=== PATIENT | male | born 1985 | race Two or more races ===

== ENCOUNTER 2020-02-17 07:27 | Inpatient (IN) | payer OTHER ==
[~2020-02-17] VITALS: Ht 172.7 cm; Wt 108.9 kg
[2020-02-19] MEDS ORDERED: PERCOCET 5-3251 EACH PO (09:47)
== END 2020-02-19 11:02 | disposition home or self-care (01) | DRG 343 ==
LOC: ER 07:27 → SURH 14:09 → O/R 14:09 → SURH 17:49
PROVIDERS: ADMIT Colon & Rectal Surgery
PROC: 0DTJ4ZZ Resection of Appendix, Percutaneous Endoscopic Approach (ICD-10-PCS; principal; 2020-02-17 15:00)
DX: K35.30 Acute appendicitis with localized peritonitis, without perforation or gangrene (principal); K57.30 Diverticulosis of large intestine without perforation or abscess without bleeding

== ENCOUNTER 2021-01-13 01:33 | Inpatient (IN) | payer OTHER ==
[~2021-01-13] VITALS: Ht 172.7 cm
[~2021-01-13 01:33] MED LIST: PERCOCET 5-3251 EACH PO
[2021-01-16] MEDS ORDERED: FLAGYL500MG PO (13:45)
[2021-01-16] MEDS ORDERED: AMOX-CLAV 875-1 EAC1 PO (13:45)
[2021-01-16] MEDS ORDERED: INTESTINEX680 M1 PO (13:45)
== END 2021-01-16 13:58 | disposition home or self-care (01) | DRG 379 ==
LOC: ER 01:33 → SEC-K 11:51 → MEDI 11:51 → SEC-K 17:11 → MEDI 17:13
PROVIDERS: ADMIT Internal Medicine; ATTEND Internal Medicine
PROC: BW21ZZZ Computerized Tomography (CT Scan) of Abdomen and Pelvis (ICD-10-PCS; principal; 2021-01-13)
DX: K57.33 Diverticulitis of large intestine without perforation or abscess with bleeding (principal); Z20.822 Contact with and (suspected) exposure to COVID-19

== ENCOUNTER 2023-01-13 22:18 | Inpatient (IN) | payer OTHER ==
[~2023-01-13] VITALS: Ht 172.7 cm; Wt 71.7 kg
[~2023-01-13 22:18] MED LIST changes: +AMOX-CLAV 875-1 EAC1 PO; +FLAGYL500MG PO; +INTESTINEX680 M1 PO
--- NOTE | 2023-01-13 22:41 | NUR ---
SE RECIBE PACIENTE EN AMBULANCIA EL MISMO SE ENCUENTRA ALERTA Y ORIENTADO X3, PACIENTE VERBALIZA QUE ESTABA JUGANDO Y SE METIO EN LA MENDEZ IZQUIERDA (SE OBSERVA EDEMA Y AREA ENROJECIDA). PACIENTE VEBRALIZA LE INDICAN COMPANEROS QUE ESTABAN EN EL LUGAR QUE PERDIO EL CONOCIMIENTO (EL NO RECUERDA LO SUCEDIDO), QUE COMENZO A VOMITAR Y TUVO CONVULCIONES. SE MONITOREAN S/V. SE UBICA PACIENTE PENDIENTE EKG (MAQUINA EN USO).
--- NOTE | 2023-01-13 23:01 | NUR ---
SE REALIZA EKG, SE LE PRESENTA A DR NGUYEN.
--- NOTE | 2023-01-14 01:30 | NUR ---
SE EDUCA PACIENTE EN EL [place] MEDICO Y LYNNE REFIERE ENTENDER. SE ADMINITRA MEDS AMY ORDEN MEDICA. SE AMERICO MUESTRAS DE ANTNO Y SE ENVIAN. PACIENTE PENDIENTE A CT SCAN
[2023-01-15] MEDS ORDERED: ZOLPIDEM TARTRA10 MG (08:44)
[2023-01-15] MEDS ORDERED: DESVENLAFAXINE100 M3 (08:44)
[2023-01-15] MEDS ORDERED: CLONAZEPAM2 MG (08:44)
== END 2023-01-15 15:44 | disposition home or self-care (01) | DRG 90 ==
LOC: ER 22:18 → MEDI 01-14 15:04
PROVIDERS: ADMIT Internal Medicine; ATTEND Internal Medicine
PROC: B020ZZZ Computerized Tomography (CT Scan) of Brain (ICD-10-PCS; principal; 2023-01-14)
PROC: B030ZZZ Magnetic Resonance Imaging (MRI) of Brain (ICD-10-PCS; 2023-01-15)
DX: S06.0XAA Concussion with loss of consciousness status unknown, initial encounter (principal); W21.12XA Struck by tennis racquet, initial encounter; Y93.73 Activity, racquet and hand sports; Y92.832 Beach as the place of occurrence of the external cause; Y99.9 Unspecified external cause status
CPT/HCPCS: 70544